=== PATIENT | female | born 1980 | race Hispanic/Latino ===

== ENCOUNTER → 2016-03-22 | Outpatient (CLI) | payer OTHER ==
[~2016-03-22] MED LIST: AC500T; AMOX500C2 PO; DOCU-143 PO; FERR-74 PO; HYDR1TAB PO; IBUP-1773 PO; OXYC-197 PO
--- NOTE | 2016-03-22 16:23 | Diagnostic Imaging Report ---
OB ultrasound. INDICATION: Followup incomplete survey with poor visualization of the four-chamber view and the spine. FINDINGS: The heart rate is 142 beats per minute. The placenta is posterior. There is no placenta previa. The spine and four-chamber view are both seen on today's exam with no abnormality identified. The growth parameters are all around 29 weeks and 0 day, within normal limits for gestational age of 28 weeks and 4 days based on first trimester ultrasound dating. IMPRESSION: The spine and four-chamber view appears unremarkable. Dictated by: Dictated on workstation # [id number]
== END ==
LOC: RAD 11:23
PROVIDERS: ATTEND Family Medicine
DX: Z34.92 Encounter for supervision of normal pregnancy, unspecified, second trimester (principal)
CPT/HCPCS: 76816

== ENCOUNTER 2016-05-31 12:10 | Inpatient (IN) | payer SELFPAY ==
[~2016-05-31] VITALS: Ht 160 cm; Wt 113.0 kg
[2016-05-31] VITALS (26 sets, daily range): BP systolic 115–176; BP diastolic 60–96
[~2016-05-31 12:10] MED LIST changes: -DOCU-143 PO; -FERR-74 PO; -IBUP-1773 PO; -OXYC-197 PO
[2016-05-31] MEDS ORDERED: D5 LR IV SOLUTION 1,000 ML IV SCH (12:43)
[2016-05-31] MEDS ORDERED: D5 LR IV SOLUTION 1,000 ML IV ONE (12:44)
[2016-05-31] MEDS ORDERED: MINERAL OIL CONCENTRATE 99.9% 15 ML UDC TOP PRN (12:45)
[2016-05-31] MEDS ORDERED: OXYTOCIN/NORMAL SALINE 500 ML IV SCH (12:56)
--- NOTE | 2016-05-31 12:56 | History & Physical-OB ---
OB - Chief Complaint & HPI Date Date of Admission: May 31, 2016 Chief Complaint/History OB-Reason for Admission/Chief: Onset of Labor Hx : 4 Hx Para: 3 Expected Date of Delivery: June 11, 2016 Gestational Age in Weeks: 38 Gestational Age in Days: 3 Admission Nurse Assessment Rev: Yes History of Labs GBS negative Allergies and Home Medications Allergies Coded Allergies: No Known Drug Allergies (Unverified , 03/26/10) Home Medications Acetaminophen 500 Mg Tablet, (Reported) Amoxicillin 500 Mg Capsule, 1 EACH PO TID for 7 Days, Ref 0 Prescribed by: YINA GUERRERO on 03/26/10312 Hydrocodone Bit/Acetaminophen 1 Each Tablet, 1-2 EACH PO Q4HR PRN, #14 Ref 0 Prescribed by: YINA GUERRERO on 03/26/10312 OB - History Hx of Present Care: Yes Ultrasounds: Normal mid trimester US Obstetrical Complications: None Medical Complications: None Obstetrical History Hx Termination: No Hx Multiple Gestation: No Hx Stillbirth: No Hx Complication: No Hx Induced Hypertens: No Hx Maternal Gestational Diabet: No Delivery History Hx Dystocia: No Hx Large For Gestational Age I: No Hx Small for Gestational Age I: No Hx Section: No Hx Vaginal Delivery Post C-Sec: No Hx Blood Disorders: No Patient Past Medical History No chronic medical problems. Social History/Family History Recent Infectious Disease Expo: No Immunizations Tetanus Booster (TDap): Unknown OB - Admission Exam Physical Exam Heart: Rhythm Normal Lungs: Clear Abdomen: Gravid Cervical Dilatation: 4cm Effacement: 50% Station: -3 Membranes: Intact Heart Rate: 140's Accelerations: Accelerations Present Short Term Variability: Present [place] Variability: Average (6-25) Contractions on Admission: < 5 Minutes Apart Date/Time Contractions Began;: 05/31/2016 @ 0600 OB - Assessment/Plan/Diagnosis Assessment Assessment: active labor (at 38w3d) Plan Induction Method: AROM Other Plan Stadol for pain relief. Oxytocin if needed. ABNER CLARK MD May 31, 2016 12:56
[2016-05-31] MEDS ORDERED: BUTORPHANOL INJ 2 MG/ML (STADOL) VIAL IV PRN (13:00)
[2016-05-31 13:06] LABS: BASOPHILS # (AUTO) 0.1 10^3/uL (0.0-0.1); BASOPHILS % (AUTO) 1 % (0-10); EOSINOPHILS # (AUTO) 0.5 10^3/uL (0.0-0.3); EOSINOPHILS % (AUTO) 5 % (0-10); LYMPHOCYTES # (AUTO) 2.7 X 10^3 (1.0-4.0); LYMPHOCYTES % (AUTO) 27 % (12-44); MEAN CORPUSCULAR HEMOGLOBIN 29 PG (25-34); MEAN CORPUSCULAR HGB CONC 33 G/DL (32-36); MEAN CORPUSCULAR VOLUME 87 FL (80-99); MEAN PLATELET VOLUME 8.8 FL (7.4-10.4); MONOCYTES # (AUTO) 0.8 X 10^3 (0.0-1.0); MONOCYTES % (AUTO) 8 % (0-12); NEUTROPHILS # (AUTO) 5.9 X 10^3 (1.8-7.8); NEUTROPHILS % (AUTO) 60 % (42-75); PLATELET COUNT 351 10^3/uL (130-400); RED BLOOD COUNT 4.09 10^6/uL (4.35-5.85); RED CELL DISTRIBUTION WIDTH 13.8 % (10.0-14.5); WHITE BLOOD COUNT 9.9 10^3/uL (4.3-11.0)
[2016-05-31] MEDS ORDERED: CATHETER FLUSH 10 ML SYR IV SCH (14:00)
[2016-05-31] MEDS ORDERED: LACTATED RINGERS 1,000 ML IV ONE ×2 (14:14→19:13)
[2016-05-31] MEDS: LACTATED RINGERS 1,000 ML IV SCH ×2 (14:19→18:04)
[2016-05-31 14:26] LABS: BILIRUBIN,URINE NEGATIVE (NEGATIVE); KETONES,URINE NEGATIVE (NEGATIVE); LEUKOCYTE ESTERASE ,URINE 1+ (NEGATIVE); NITRITE,URINE NEGATIVE (NEGATIVE); PH,URINE 7 (5-9); PROTEIN,URINE 1+ (NEGATIVE); UROBILINOGEN,URINE NORMAL (NORMAL)
[2016-05-31] MEDS ORDERED: SUFENTA 0.6MCG/ML BUPIVA 0.125 0 ML ONE (14:43)
[2016-05-31] MEDS ORDERED: fentaNYL INJECTION 100 MCG/2 ML AMP ONE (14:53)
[2016-05-31] MEDS ORDERED: diphenhydrAMINE 50 MG/ML INJ (BENADRYL) IV PRN ×2 (15:45→20:00)
[2016-05-31] MEDS ORDERED: METOCLOPRAMIDE INJ 10 MG/2 ML (REGLAN) IV PRN ×2 (15:45→20:00)
[2016-05-31] MEDS ORDERED: ONDANSETRON 4 MG/2 ML (SDV) Z0FRAN IV PRN ×2 (15:45→20:00)
[2016-05-31] MEDS ORDERED: fentaNYL INJECTION 100 MCG/2 ML AMP IJ ONE (15:45)
[2016-05-31] MEDS ORDERED: NALOXONE 0.4 MG/ML 1 ML (NARCAN) VIAL IV PRN ×4 (15:45→20:00)
[2016-05-31] MEDS ORDERED: LACTATED RINGERS 1,000 ML IV PRN (17:55)
[2016-05-31] MEDS ORDERED: FAMOTIDINE 20MG/2ML IV (PEPCID) IV ONE ×2 (18:00→20:00)
[2016-05-31] MEDS ORDERED: METOCLOPRAMIDE INJ 10 MG/2 ML (REGLAN) IV ONE ×2 (18:00→20:00)
[2016-05-31] MEDS ORDERED: TERBUTALINE INJ 1 MG/ML (BRETHINE) AMP SC ONE (18:00)
[2016-05-31] MEDS ORDERED: CITRIC ACID/SOB CIT (BICITRA) 30 ML UDC PO ONE ×2 (18:00→20:00)
--- NOTE | 2016-05-31 18:00 | Progress Note (SOAP) ---
Subjective Subjective/Events-last exam Patient in labor and pushing for the last 1hr and 35 min. The patient is with less pain relief from the spinal placed at 1500. Objective Exam Vital Signs Date Time Temp Pulse Resp B/P (MAP) Pulse Ox O2 Delivery O2 Flow Rate FiO2 05/31/16 14:40 86 20 134/71 Room Air 05/31/16 14:25 82 20 139/72 Room Air 05/31/16 14:10 98 20 145/77 Room Air 05/31/16 13:55 82 20 150/73 Room Air 05/31/16 13:25 100 20 131/78 Room Air 05/31/16 12:55 99.3 72 18 132/73 Room Air 05/31/16 12:30 83 18 140/78 Room Air Capillary Refill : Other comments Cervix initially complete except for small anterior lip that reduced. Now the anterior lip is swollen and not reducible. Infant heather skull advancement no longer occuring with maternal push. monitor remains reactive. Results Lab Laboratory Tests 05/31/16 12:43: White Blood Count 9.9, Red Blood Count 4.09L, Hemoglobin 11.8, Hematocrit 35, Mean Corpuscular Volume 87, Mean Corpuscular Hemoglobin 29, Mean Corpuscular Hemoglobin Concent 33, Red Cell Distribution Width 13.8, Platelet Count 351, Mean Platelet Volume 8.8, Neutrophils (%) (Auto) 60, Lymphocytes (%) (Auto) 27, Monocytes (%) (Auto) 8, Eosinophils (%) (Auto) 5, Basophils (%) (Auto) 1, Neutrophils # (Auto) 5.9, Lymphocytes # (Auto) 2.7, Monocytes # (Auto) 0.8, Eosinophils # (Auto) 0.5H, Basophils # (Auto) 0.1 05/31/16 14:00: Urine Color YELLOW, Urine Clarity CLEAR, Urine pH 7, Urine Specific [place] 1.020, Urine Protein 1+H, Urine Glucose (UA) NEGATIVE, Urine Ketones NEGATIVE, Urine Nitrite NEGATIVE, Urine Bilirubin NEGATIVE, Urine Urobilinogen NORMAL, Urine Leukocyte Esterase 1+H, Urine RBC (Auto) 3+H, Urine RBC NONE, Urine WBC 5- 10H, Urine Squamous Epithelial Cells 5-10, Urine Crystals NONE, Urine Bacteria FEWH, Urine Casts NONE, Urine Mucus NEGATIVE, Urine Culture Indicated YES Assessment/Plan Assessment/Plan Assess & Plan/Chief Complaint 1. IUP at 38w3d gestation in labor and currently pushing. -After 1hr and 35min of pushing there is no advancement of the heather skull beyond-2 station. The head position appears to be OP based upon examination. -Patient and family agree with proceeding with primary low transverse due to CPD. Dr Rosales consulted and surgery crew notified of plan to proceed with primary . Clinical Quality Measures DVT/VTE Risk/Contraindication: Risk Factor Score Per Nursin RFS Level Per Nursing on Admit: 1=Low/No VTE PPX ABNER CLARK MD May 31, 2016 18:00
--- NOTE | 2016-05-31 18:23 | History & Physical-OB ---
OB - Chief Complaint & HPI Date Date of Admission: Date of Admission: May 31, 2016 at 13:01 Chief Complaint/History OB-Reason for Admission/Chief: Onset of Labor Hx : 4 Hx Para: 3 Expected Date of Delivery: June 11, 2016 Gestational Age in Weeks: 38 Gestational Age in Days: 3 Other reason for admission: Rakel is a 35 y/o @ 38w3d here with active labor who I was consulted on for arrest of descent Pt has been complete and pushing for over 90 minutes now without any arrest of descent Dr. Álvarez also has suspicion for CPD Pt is in agreement with proceeding with delivery Admission Nurse Assessment Rev: Yes History of Labs As per Dr. Álvarez's H&P Allergies and Home Medications Allergies Coded Allergies: No Known Drug Allergies (Unverified , 03/26/10) Home Medications Acetaminophen 500 Mg Tablet, (Reported) Amoxicillin 500 Mg Capsule, 1 EACH PO TID for 7 Days, Ref 0 Prescribed by: YINA GUERRERO on 03/26/10312 Hydrocodone Bit/Acetaminophen 1 Each Tablet, 1-2 EACH PO Q4HR PRN, #14 Ref 0 Prescribed by: YINA GUERRERO on 03/26/10312 OB - History Hx of Present Care: Yes Ultrasounds: Normal mid trimester US Obstetrical Complications: None Medical Complications: None Obstetrical History Hx : 4 Hx Para: 3 Hx Termination: No Hx Multiple Gestation: No Hx Stillbirth: No Hx Complication: No Hx Induced Hypertens: No Hx Maternal Gestational Diabet: No Delivery History Hx Dystocia: No Hx Large For Gestational Age I: No Hx Small for Gestational Age I: No Hx Section: No Hx Vaginal Delivery Post C-Sec: No Hx Blood Disorders: No Patient Past Medical History No chronic medical problems. Social History/Family History Recent Infectious Disease Expo: No Alcohol Use: Denies Use Recreational Drug Use: No Immunizations Tetanus Booster (TDap): Unknown OB - Admission Exam Physical Exam Vitals: Vital Signs 05/31/16 05/31/16 12:55 14:40 Temp 99.3 Pulse 86 Resp 20 B/P (MAP) 134/71 O2 Delivery Room Air Heart: Rhythm Normal Abdomen: Gravid Cervical Dilatation: 10cm Effacement: 100% Station: -2 Membranes: Ruptured Amniotic Fluid: Clear Heart Rate: 150's Accelerations: Accelerations Present Decelerations: Variable Decelerations (several variables with contractions, federico > 100) Short Term Variability: Present Store Sales [employer] Variability: Average (6-25) Contractions on Admission: < 5 Minutes Apart Date/Time Contractions Began;: 05/31/2016 @ 0600 Labs Laboratory Tests Test 05/31/16 12:43 05/31/16 14:00 Range/Units White Blood Count 9.9 4.3-11.0 10^3/uL Red Blood Count 4.09 L 4.35-5.85 10^6/uL Hemoglobin 11.8 11.5-16.0 G/DL Hematocrit 35 35-52 % Mean Corpuscular Volume 87 80-99 FL Mean Corpuscular Hemoglobin 29 25-34 PG Mean Corpuscular Hemoglobin Concent 33 32-36 G/DL Red Cell Distribution Width 13.8 10.0-14.5 % Platelet Count 351 130-400 10^3/uL Mean Platelet Volume 8.8 7.4-10.4 FL Neutrophils (%) (Auto) 60 42-75 % Lymphocytes (%) (Auto) 27 12-44 % Monocytes (%) (Auto) 8 0-12 % Eosinophils (%) (Auto) 5 0-10 % Basophils (%) (Auto) 1 0-10 % Neutrophils # (Auto) 5.9 1.8-7.8 X 10^3 Lymphocytes # (Auto) 2.7 1.0-4.0 X 10^3 Monocytes # (Auto) 0.8 0.0-1.0 X 10^3 Eosinophils # (Auto) 0.5 H 0.0-0.3 10^3/uL Basophils # (Auto) 0.1 0.0-0.1 10^3/uL Urine Color YELLOW Urine Clarity CLEAR Urine pH 7 5-9 Urine Specific [place] 1.020 1.016-1.022 Urine Protein 1+ H NEGATIVE Urine Glucose (UA) NEGATIVE NEGATIVE Urine Ketones NEGATIVE NEGATIVE Urine Nitrite NEGATIVE NEGATIVE Urine Bilirubin NEGATIVE NEGATIVE Urine Urobilinogen NORMAL NORMAL MG/DL Urine Leukocyte Esterase 1+ H NEGATIVE Urine RBC (Auto) 3+ H NEGATIVE Urine RBC NONE /HPF Urine WBC 5-10 H /HPF Urine Squamous Epithelial Cells 5-10 /HPF Urine Crystals NONE /LPF Urine Bacteria FEW H /HPF Urine Casts NONE /LPF Urine Mucus NEGATIVE /LPF Urine Culture Indicated YES OB - Assessment/Plan/Diagnosis Assessment Assessment: active labor (at 38w3d) Plan Other Plan 35 y/o @ 38w3d with active labor now with arrest of descent, GBS neg Patient of Dr. Álvarez Class III obesity (BMI 44) I discussed with the patient that I do believe CPD along with possible OP presentation is the cause for arrest of descent. I do not think that continuing with pushing will result in a vaginal delivery and I do worry about a shoulder dystocia. Her pelvis is proven to 8lb8oz per Dr. Álvarez but I am suspicious this fetus may be much larger based on my Jostin's manuevers. Discussed risks, benefits and alternatives were discussed, including specifically bleeding, infection, and damage to organs/structures of mother/ infant during the birthing process. Ancef 2g before skin incision Spinal anesthesia SAMMY MONTIEL MD May 31, 2016 18:23
[2016-05-31] MEDS ORDERED: OXYTOCIN/NORMAL SALINE 1,000 ML IV ONE (18:25)
[2016-05-31] MEDS ORDERED: ceFAZolin 2 GM/50 ML NS 50 ML IV ONE (18:30)
[2016-05-31] MEDS ORDERED: KETAMINE HCL 100 MG/ML 5 ML VIAL ONE (18:30)
--- NOTE | 2016-05-31 18:30 | Cesarean Section Operative ---
Procedure Procedure Note Date of Procedure: 05/31/16 Pre-operative Diagnosis: Rakel Cueva is a 35 y/o @ 38w3d with active labor, arrest of descent, cephalopelvic disproportion, class III obesity , GBS neg Post-operative Diagnosis: same Procedure: Primary low transverse section Physician: Meena Rosales MD Field Professional: Hi Álvarez MD who was medically necessary for retraction of vital structures Estimated blood loss: 900 mL Disposition: Recovery room, stable Findings: Viable female , Apgars 8/9, weight 5ak13iu, intact placenta, 3vc, normal appearing uterus, tubes, and ovaries. Indications: Rakel Cueva is a 35 y/o @ 38w3d who presented in active labor, managed by Dr. Álvarez. She progressed to completion and began to push but made no progress past -2 station after 90 minutes. Cephalopelvic disproportion was suspected. I was consulted for abdominal delivery and agreed with the plan. Procedure Details: The patient was seen in pre-op and the procedure was discussed with the patient in full, including the risks, benefits, and alternatives. All questions were answered. She was offered the use of the motion picture set worker but declined as her daughter interpreted for her. The patient was taken to the operating room and a time out was performed, verifying patient and procedure. After spinal anesthesia was placed by our anesthesia colleagues, the patient was placed in the dorsal supine with leftward tilt for uterine displacement. Her abdomen was then prepped and draped in the typical sterile fashion. A Pfannenstiel skin incision was made using a scalpel and carried down through the underlying fascia. The fascia was incised in the midline and tented up using Fabian clamps. On both the inferior and superior fascia side the rectus muscle was dissected off bluntly and sharply using Rodríguez scissors. The peritoneum was identified and entered bluntly in the midline. This was then stretched laterally using manual strength. After entering the abdominal cavity and confirming lack of intraperitoneal adhesions, an extra-large Emery retractor was placed and the lower uterine segment was visualized. A bladder flap was created with the use of Metzenbaum scissors. A scalpel was utilized to make a low transverse uterine incision. The infant's head was grasped and brought to the level of the incision. Fundal pressure was applied and infant was delivered without difficulty. Mouth and nares were suctioned with bulb suction. After the umbilical cord was clamped and cut, the infant was handed off to the pediatric staff. A sample of cord blood was then obtained. The placenta was delivered intact via uterine massage. The uterus was exteriorized and cleared of all clots and debris. The uterine incision was closed using 0 Vicryl in a running locked fashion. A second imbricated layer was placed using 0 Vicryl in a running fashion as well. The bilateral tubes and ovaries appeared normal. The abdominal gutters were cleared of all clots and debris. A final check of the uterine incision showed it to be hemostatic. The fascia was closed with 0 Vicryl in a running fashion. The subcutaneous space was hemostatic, and irrigated. The subcutaneous space was closed with 3-0 Vicryl in several single interrupted stitches. The skin was then closed using 4- 0 Monocryl in a running subcuticular fashion. The skin edges were reapproximated together and were hemostatic. A pressure dressing was applied. All sponge, lap and needle counts were correct at the end of the procedure per nursing. Vitals - Labs Vital Signs - I&O Vital Signs Date Time Temp Pulse Resp B/P (MAP) Pulse Ox O2 Delivery O2 Flow Rate FiO2 05/31/16 14:40 86 20 134/71 Room Air 05/31/16 14:25 82 20 139/72 Room Air 05/31/16 14:10 98 20 145/77 Room Air 05/31/16 13:55 82 20 150/73 Room Air 05/31/16 13:25 100 20 131/78 Room Air 05/31/16 12:55 99.3 72 18 132/73 Room Air 05/31/16 12:30 83 18 140/78 Room Air Labs Laboratory Tests 05/31/16 12:43: White Blood Count 9.9, Red Blood Count 4.09L, Hemoglobin 11.8, Hematocrit 35, Mean Corpuscular Volume 87, Mean Corpuscular Hemoglobin 29, Mean Corpuscular Hemoglobin Concent 33, Red Cell Distribution Width 13.8, Platelet Count 351, Mean Platelet Volume 8.8, Neutrophils (%) (Auto) 60, Lymphocytes (%) (Auto) 27, Monocytes (%) (Auto) 8, Eosinophils (%) (Auto) 5, Basophils (%) (Auto) 1, Neutrophils # (Auto) 5.9, Lymphocytes # (Auto) 2.7, Monocytes # (Auto) 0.8, Eosinophils # (Auto) 0.5H, Basophils # (Auto) 0.1 05/31/16 14:00: Urine Color YELLOW, Urine Clarity CLEAR, Urine pH 7, Urine Specific [place] 1.020, Urine Protein 1+H, Urine Glucose (UA) NEGATIVE, Urine Ketones NEGATIVE, Urine Nitrite NEGATIVE, Urine Bilirubin NEGATIVE, Urine Urobilinogen NORMAL, Urine Leukocyte Esterase 1+H, Urine RBC (Auto) 3+H, Urine RBC NONE, Urine WBC 5- 10H, Urine Squamous Epithelial Cells 5-10, Urine Crystals NONE, Urine Bacteria FEWH, Urine Casts NONE, Urine Mucus NEGATIVE, Urine Culture Indicated YES MEENA ROSALES MD May 31, 2016 18:30
[2016-05-31] MEDS ORDERED: OXYC-197 PO (18:32)
[2016-05-31] MEDS ORDERED: DOCU-143 PO (18:32)
[2016-05-31] MEDS ORDERED: IBUP-1773 PO (18:32)
--- NOTE | 2016-05-31 18:34 | Discharge Inst-Women's Service ---
Discharge Inst-Women's Serv Depart Medication/Instructions New, Converted or Re-Newed RX: RX on Chart Final Diagnosis Arrest of descent, suspected cephalopelvic disproportion, primary delivery Consults/Follow Up Additional Follow Up: Yes Orders/Referrals 10-[address] Rosales [address] Álvarez Activity Driving Instructions: No Driving for 1 Week (or while taking narcotic pain medications) NO SMOKING: NO SMOKING Nothing Inside Vagina: No Douching, No [place], No Tampons Other Activity No strenuous activity No heavy lifting > 10 lb Diet Discharge Diet: No Restrictions Symptoms to Report to DrAj: Bleeding Excessive, Pain Increased, Fever Over 101 Degrees F, Pain/Pressure in Chest, Vaginal Bleeding Increase, Dizziness/Fainting , Nausea/Vomiting, Shortness of Breath For Any Problems or Questions: Contact Your Physician, Go to Emergency Room Skin/Wound Care Infection Signs and Symptoms: Increased Redness, Foul Odor of Wound, Increased Drainage Operative Area Clean and Dry: Keep Incision Clean/Dry Stitches/[place]/Dermabond: Dermabond, Care of Stitches Bathing Instructions: SAMMY Hadley MD May 31, 2016 18:34
[2016-05-31] MEDS ORDERED: FERR-74 PO (18:35)
[2016-05-31] MEDS ORDERED: ONDANSETRON 4 MG/2 ML (SDV) Z0FRAN ONE (19:13)
[2016-05-31] MEDS: KETOROLAC 30 MG/ML VIAL IVP SCH (19:30)
[2016-05-31] MEDS ORDERED: KETOROLAC 30 MG/ML VIAL ONE (19:48)
[2016-05-31] MEDS ORDERED: LACTATED RINGERS 1,000 ML IV SCH (19:56)
[2016-05-31] MEDS: OXYTOCIN/NORMAL SALINE 500 ML IV SCH (21:00)
[2016-05-31] MEDS ORDERED: TETANUS,DIPTH,PERTUSS P/F (BOOSTRIX) 0.5 ML VIAL IM SCH (21:45)
[2016-05-31] MEDS ORDERED: ONDANSETRON 4 MG/2 ML (SDV) Z0FRAN IVP PRN (21:45)
[2016-05-31] MEDS ORDERED: morphine INJ 4 MG/ML 1 ML (VIAL/SYRINGE) IVP PRN (21:45)
[2016-05-31] MEDS ORDERED: MEASLES,MUMPS,RUBELLA 1 EA INJ SC SCH (21:45)
[2016-05-31] MEDS: oxyCODONE/APAP 5/325MG (PERCOCET 5) TABLET PO PRN (21:55)
[2016-05-31] MEDS: CATHETER FLUSH 10 ML SYR IV SCH (22:18)
[2016-06-01] VITALS: BP 121/68
[2016-06-01] MEDS: KETOROLAC 30 MG/ML VIAL IVP SCH ×3 (00:45→13:35)
[2016-06-01] MEDS: OXYTOCIN/NORMAL SALINE 500 ML IV SCH (00:45)
[2016-06-01 03:16] VITALS: BP 115/65
[2016-06-01] MEDS: oxyCODONE/APAP 5/325MG (PERCOCET 5) TABLET PO PRN ×2 (03:16→20:57)
[2016-06-01 05:43] LABS: BASOPHILS % (AUTO) 0 % (0-10); EOSINOPHILS # (AUTO) 0.2 10^3/uL (0.0-0.3); EOSINOPHILS % (AUTO) 2 % (0-10); LYMPHOCYTES # (AUTO) 1.6 X 10^3 (1.0-4.0); LYMPHOCYTES % (AUTO) 15 % (12-44); MEAN CORPUSCULAR HEMOGLOBIN 29 PG (25-34); MEAN CORPUSCULAR HGB CONC 33 G/DL (32-36); MEAN CORPUSCULAR VOLUME 87 FL (80-99); MEAN PLATELET VOLUME 8.6 FL (7.4-10.4); MONOCYTES # (AUTO) 0.7 X 10^3 (0.0-1.0); MONOCYTES % (AUTO) 7 % (0-12); NEUTROPHILS # (AUTO) 7.9 X 10^3 (1.8-7.8); NEUTROPHILS % (AUTO) 76 % (42-75); PLATELET COUNT 264 10^3/uL (130-400); RED BLOOD COUNT 3.22 10^6/uL (4.35-5.85); RED CELL DISTRIBUTION WIDTH 13.8 % (10.0-14.5); WHITE BLOOD COUNT 10.4 10^3/uL (4.3-11.0)
[2016-06-01] MEDS: CATHETER FLUSH 10 ML SYR IV SCH (06:36)
[2016-06-01] MEDS ORDERED: LACTATED RINGERS 1,000 ML IV PRN (06:58)
[2016-06-01 08:30] VITALS: BP 120/75
[2016-06-01] MEDS: DOCUSATE SODIUM 100 MG (COLACE) CAP PO SCH ×2 (08:54→20:52)
[2016-06-01] MEDS: FERROUS SULF 325 MG (IRON) TAB PO SCH (08:54)
[2016-06-01] MEDS: ENOXAPARIN 40 MG/0.4 ML (LOVENOX) SYR SC SCH (08:55)
--- NOTE | 2016-06-01 11:50 | Progress Note-Standard ---
Standard Progress Note Progress Notes/Assess & Plan Progress/Assessment & Plan Patient doing well POD 1 PLTCS. Reports decent pain control with meds. Ambulating and voiding freely. Lochia moderate. Vital Sign - Last 24 Hours 05/31/16 05/31/16 05/31/16 05/31/16 12:30 12:55 13:25 13:55 Temp 99.3 Pulse 83 72 100 82 Resp 18 18 20 20 B/P (MAP) 140/78 132/73 131/78 150/73 O2 Delivery Room Air Room Air Room Air Room Air 05/31/16 05/31/16 05/31/16 05/31/16 14:10 14:25 14:40 14:55 Pulse 98 82 86 86 Resp 20 20 20 20 B/P (MAP) 145/77 139/72 134/71 146/71 O2 Delivery Room Air Room Air Room Air Room Air 05/31/16 05/31/16 05/31/16 05/31/16 15:10 15:15 15:20 15:24 Pulse 96 98 113 87 Resp 20 20 20 B/P (MAP) 173/78 170/80 175/96 128/62 Pulse Ox 95 87 98 97 O2 Delivery Room Air Room Air Room Air 05/31/16 05/31/16 05/31/16 05/31/16 15:25 15:30 15:35 15:40 Pulse 96 69 81 81 Resp 20 20 B/P (MAP) 173/78 139/78 147/78 Pulse Ox 95 100 100 95 O2 Delivery Room Air Room Air 05/31/16 05/31/16 05/31/16 05/31/16 15:45 16:00 16:15 16:30 Pulse 78 95 112 110 Resp 20 20 20 B/P (MAP) 139/73 141/80 165/71 Pulse Ox 100 99 98 O2 Delivery Room Air Room Air Room Air 05/31/16 05/31/16 05/31/16 05/31/16 16:45 17:00 17:15 17:30 Pulse 105 103 114 Resp 20 20 20 20 B/P (MAP) 115/80 176/70 143/78 O2 Delivery Room Air Room Air Room Air Room Air 05/31/16 05/31/16 05/31/16 05/31/16 17:35 17:45 18:15 18:30 Temp 99.6 Pulse 102 117 114 Resp 20 20 20 B/P (MAP) 146/76 162/89 130/60 O2 Delivery Room Air Room Air Room Air 05/31/16 05/31/16 06/01/16 06/01/16 20:45 21:55 00:00 03:16 Temp 99.2 98.7 98.5 98.6 Pulse 76 88 80 85 Resp 20 20 18 20 B/P (MAP) 127/74 125/72 121/68 115/65 Pulse Ox 99 99 98 98 O2 Delivery Room Air Room Air Room Air Room Air Intake and Output 05/31/16 05/31/16 06/01/16 15:00 23:00 07:00 Intake Total 1050 ml 2000 ml Output Total 1040 ml 450 ml Balance 10 ml 1550 ml Laboratory Tests Test 05/31/16 12:43 05/31/16 14:00 06/01/16 05:30 Range/Units White Blood Count 9.9 10.4 4.3-11.0 10^3/uL Red Blood Count 4.09 L 3.22 L 4.35-5.85 10^6/uL Hemoglobin 11.8 9.2 #L 11.5-16.0 G/DL Hematocrit 35 28 L 35-52 % Mean Corpuscular Volume 87 87 80-99 FL Mean Corpuscular Hemoglobin 29 29 25-34 PG Mean Corpuscular Hemoglobin Concent 33 33 32-36 G/DL Red Cell Distribution Width 13.8 13.8 10.0-14.5 % Platelet Count 351 264 130-400 10^3/uL Mean Platelet Volume 8.8 8.6 7.4-10.4 FL Neutrophils (%) (Auto) 60 76 H 42-75 % Lymphocytes (%) (Auto) 27 15 12-44 % Monocytes (%) (Auto) 8 7 0-12 % Eosinophils (%) (Auto) 5 2 0-10 % Basophils (%) (Auto) 1 0 0-10 % Neutrophils # (Auto) 5.9 7.9 H 1.8-7.8 X 10^3 Lymphocytes # (Auto) 2.7 1.6 1.0-4.0 X 10^3 Monocytes # (Auto) 0.8 0.7 0.0-1.0 X 10^3 Eosinophils # (Auto) 0.5 H 0.2 0.0-0.3 10^3/uL Basophils # (Auto) 0.1 0.0 0.0-0.1 10^3/uL Urine Color YELLOW Urine Clarity CLEAR Urine pH 7 5-9 Urine Specific [place] 1.020 1.016-1.022 Urine Protein 1+ H NEGATIVE Urine Glucose (UA) NEGATIVE NEGATIVE Urine Ketones NEGATIVE NEGATIVE Urine Nitrite NEGATIVE NEGATIVE Urine Bilirubin NEGATIVE NEGATIVE Urine Urobilinogen NORMAL NORMAL MG/DL Urine Leukocyte Esterase 1+ H NEGATIVE Urine RBC (Auto) 3+ H NEGATIVE Urine RBC NONE /HPF Urine WBC 5-10 H /HPF Urine Squamous Epithelial Cells 5-10 /HPF Urine Crystals NONE /LPF Urine Bacteria FEW H /HPF Urine Casts NONE /LPF Urine Mucus NEGATIVE /LPF Urine Culture Indicated YES Incision: c/d/i Diagnosis: POD 1 PLTCS BMI 44 P: Continue routine PO care Anticipate dc tomorrow. PAXTON COELLO DO Jun 01, 2016 11:50 am
[2016-06-01 13:00] VITALS: BP 124/78
--- NOTE | 2016-06-01 14:11 | Anesthesia-Regional Post-Op ---
Regional Patient Condition Mental Status: Alert, Oriented x3 Circulation: Same as Pre-Op Headache: Absent Sensation: Full Recovery Motor Block: Absent Post Op Complications Complications None Follow Up Care/Instructions Patient Instructions None needed. Anesthesia/Patient Condition Patient is doing well, no complaints, stable vital signs, no apparent adverse anesthesia problems. No complications reported per nursing. D/C home per [facility] Criteria: No JOÃO CONDE CRNA Jun 01, 2016 14:11
[2016-06-01 18:13] VITALS: BP 123/75
[2016-06-01] MEDS ORDERED: IBUPROFEN 800 MG (MOTRIN) TAB PO ONE (20:48)
[2016-06-01 20:52] VITALS: BP 119/69
[2016-06-01] MEDS: IBUPROFEN 800 MG (MOTRIN) TAB PO SCH (20:52)
[2016-06-02] MEDS: IBUPROFEN 800 MG (MOTRIN) TAB PO SCH ×2 (03:03→08:51)
[2016-06-02 03:04] VITALS: BP 119/73
[2016-06-02] MEDS: oxyCODONE/APAP 5/325MG (PERCOCET 5) TABLET PO PRN (03:04)
[2016-06-02 08:30] VITALS: BP 122/71
[2016-06-02] MEDS: ENOXAPARIN 40 MG/0.4 ML (LOVENOX) SYR SC SCH (08:50)
[2016-06-02] MEDS: FERROUS SULF 325 MG (IRON) TAB PO SCH (08:50)
[2016-06-02] MEDS: DOCUSATE SODIUM 100 MG (COLACE) CAP PO SCH (08:51)
--- NOTE | 2016-06-02 09:59 | Progress Note-Standard ---
Standard Progress Note Progress Notes/Assess & Plan Progress/Assessment & Plan Patient doing well POD 2 PLTCS. Reports decent pain control with meds. Ambulating and voiding freely. Lochia moderate. Vital Sign - Last 24 Hours 06/01/16 06/01/16 06/01/16 06/02/16 13:00 18:13 20:52 03:04 Temp 97.9 99.5 99.8 97.8 Pulse 94 98 103 92 Resp 20 18 20 B/P (MAP) 124/78 123/75 119/69 119/73 Pulse Ox 98 98 O2 Delivery Room Air Room Air Room Air Room Air 06/02/16 08:30 Temp 97.8 Pulse 83 Resp 20 B/P (MAP) 122/71 Pulse Ox 97 O2 Delivery Room Air Intake and Output 06/01/16 06/01/16 06/02/16 15:00 23:00 07:00 Intake Total 1710 ml 1000 ml Output Total 2300 ml 900 ml Balance -590 ml 100 ml Incision: c/d/i Diagnosis: POD 2 PLTCS BMI 44 P: Continue routine PO care Anticipate dc today PAXTON COELLO DO Jun 02, 2016 9:59 am
[2016-06-02 14:00] VITALS: BP 133/80
[2016-06-02 14:15] VITALS: BP 133/80
== END 2016-06-02 14:15 | disposition home or self-care (01) | DRG 765 ==
LOC: LDRP 12:10 → WSo 12:10 → LDRP 13:01 → WSo 13:07 → LDRP 20:35
PROVIDERS: ADMIT Family Medicine; ATTEND Family Medicine
PROC: 10D00Z1 Extraction of Products of Conception, Low, Open Approach (ICD-10-PCS; principal; 2016-05-31 18:34)
DX: O66.8 Other specified obstructed labor (principal); O66.40 Failed trial of labor, unspecified; O99.214 Obesity complicating childbirth; E66.9 Obesity, unspecified; Z68.41 Body mass index [BMI] 40.0-44.9, adult; Z37.0 Single live birth; Z3A.38 38 weeks gestation of pregnancy
CPT/HCPCS: 36415; 81000; 85025; 86850; 86900; 86901; 87081; 87088; 88307; 94664; 99212

== ENCOUNTER 2018-06-16 17:15 | Emergency (ER) | payer SELFPAY ==
[~2018-06-16] VITALS: Ht 162.6 cm; Wt 96.2 kg
[~2018-06-16 17:15] MED LIST changes: +DOCU-143 PO; +FERR325T18 PO; +IBUP-1773 PO; +OXYC1TAB87 PO
[2018-06-16] MEDS ORDERED: fentaNYL INJECTION 100 MCG/2 ML AMP ONE (17:40)
--- NOTE | 2018-06-16 17:40 | NUR ---
ASSISTED ED PROVIDER WITH VAGINAL EXAM
[2018-06-16] MEDS ORDERED: NS IV 1000 ML 1,000 ML ONE (17:43)
[2018-06-16] MEDS ORDERED: NS IV 1000 ML 1,000 ML IV SCH (17:44)
[2018-06-16] MEDS ORDERED: fentaNYL INJECTION 100 MCG/2 ML AMP IVP ONE ×2 (17:45→18:30)
--- NOTE | 2018-06-16 17:55 | ED GU-Female ---
General Stated Complaint: 14 WKS PREG/PAIN/FLUID/BLOOD LEAKING Source: patient, other Exam Limitations: language barrier History of Present Illness Date Seen by Provider: June 16, 2018 Time Seen by Provider: 17:36 Initial Comments Patient presents ER by private conveyance with chief complaint of vaginal bleeding started this morning. His gotten heavier she's having abdominal cramping. She is 14 weeks 3 days by an estimated due date of December 10. She is a known to a female OB provider but she does not know the name. She just saw them Sunday and everything was fine. No dysuria fevers chills cough shortness of breath. No problems with thus far. No history of high blood pressure diabetes or preeclampsia and previous . Allergies and Home Medications Allergies Coded Allergies: No Known Drug Allergies (Unverified , 05/27/17) Home Medications Hydrocodone Bit/Acetaminophen 1 Tab Tab, 1 EACH PO Q4-6HR PRN for PAIN-MODERATE Prescribed by: DIANA ROTHMAN on 06/16/18 1855 Oxycodone HCl/Acetaminophen 1 Each Tablet, 1-2 EACH PO Q4H PRN for PAIN-MODERATE Prescribed by: SAMMY MONTIEL on 05/31/16 1832 Patient Home Medication List Home Medication List Reviewed: Yes Review of Systems Review of Systems Constitutional: No chills, No diaphoresis EENTM: No ear discharge, No hearing loss, No ear pain Respiratory: No cough, No dyspnea on exertion Cardiovascular: No chest pain, No palpitations Gastrointestinal: abdominal pain; No constipation, No diarrhea Genitourinary: denies burning, denies discharge; dysuria : Yes Expected Date of Delivery: Dec 10, 2018 Musculoskeletal: No back pain, No joint pain Past Gzbxsjx-Pvwujj-Zkddgs Hx Patient Social History Alcohol Use: Denies Use Recreational Drug Use: No Smoking Status: Never a Smoker 2nd Hand Smoke Exposure: No Recent Foreign Travel: No Contact w/Someone Who Travel: No Recent Hopitalizations: Yes (for sinusitus) Immunizations Up To Date Tetanus Booster (TDap): Unknown Seasonal Allergies Seasonal Allergies: No Past Medical History Surgeries: Yes Section Respiratory: No Cardiac: No Neurological: No Reproductive Disorders: No Genitourinary: No Gastrointestinal: No Musculoskeletal: No Endocrine: No HEENT: No Cancer: No Psychosocial: No Integumentary: No Blood Disorders: No Family Medical History No Family History of: AIDS Abdominal aortic aneurysm [place]'s disease Alcoholism Alzheimer's disease Aphasia Arthritis Asthma Cancer of mouth Cardiovascular disease Cataracts Colon cancer Completed stroke Congenital disease Congenital heart disease Coronary thrombosis Cystic fibrosis Deafness or hearing loss Dementia Diabetes mellitus Drug abuse Dysphasia Fibrocystic disease of breast Gastroenteritis Glaucoma Headache disorder Hypercholesterolemia Hypertension Infertility Kidney disease Myocardial infarction Neoplasm Not obtainable due to adoption Osteoporosis Parkinson's disease Prostate cancer Psychosocial problem Respiratory disorder Seizure disorder Severe allergy Thyroid disease Tuberculosis Visual disorder No Pertinent Family Hx Physical Exam Vital Signs Vital Signs - First Documented 06/16/18 17:30 Temp 98.1 Pulse 100 Resp 22 B/P (MAP) 128/61 (83) Pulse Ox 100 O2 Delivery Room Air Capillary Refill : Height, Weight, BMI Height: 5'3.00" Weight: 210lbs. 0.6oz. [id number]; 44.1 BMI Method:Stated General Appearance: WD/WN, no apparent distress HEENT: PERRL/EOMI, pharynx normal Neck: full range of motion, normal inspection Cardiovascular: normal peripheral pulses, regular rate, rhythm, no edema Respiratory: no respiratory distress, no accessory muscle use Gastrointestinal: no organomegaly, other (gravid with fundus palpable under the umbilicus just above the pubic bones) Neurologic/Psychiatric: alert, normal mood/affect, oriented x 3 Skin: normal color, warm/dry Progress/Results/Core Measures Suspected Sepsis SIRS Temperature: Pulse: Respiratory Rate: Laboratory Tests 06/16/18 17:32: White Blood Count 18.3H Blood Pressure / Mean: Laboratory Tests 06/16/18 17:32: Creatinine 0.70, Platelet Count 357, Total Bilirubin 0.2 Results/Orders Lab Results Laboratory Tests Test 06/16/18 17:32 06/16/18 18:14 Range/Units White Blood Count 18.3 H 4.3-11.0 10^3/uL Red Blood Count 4.08 L 4.35-5.85 10^6/uL Hemoglobin 12.2 11.5-16.0 G/DL Hematocrit 36 35-52 % Mean Corpuscular Volume 89 80-99 FL Mean Corpuscular Hemoglobin 30 25-34 PG Mean Corpuscular Hemoglobin Concent 34 32-36 G/DL Red Cell Distribution Width 13.4 10.0-14.5 % Platelet Count 357 130-400 10^3/uL Mean Platelet Volume 8.4 7.4-10.4 FL Neutrophils (%) (Auto) 76 H 42-75 % Lymphocytes (%) (Auto) 15 12-44 % Monocytes (%) (Auto) 6 0-12 % Eosinophils (%) (Auto) 3 0-10 % Basophils (%) (Auto) 0 0-10 % Neutrophils # (Auto) 14.0 H 1.8-7.8 X 10^3 Lymphocytes # (Auto) 2.7 1.0-4.0 X 10^3 Monocytes # (Auto) 1.1 H 0.0-1.0 X 10^3 Eosinophils # (Auto) 0.6 H 0.0-0.3 10^3/uL Basophils # (Auto) 0.0 0.0-0.1 10^3/uL Neutrophils % (Manual) 74 % Lymphocytes % (Manual) 9 % Monocytes % (Manual) 5 % Eosinophils % (Manual) 4 % Basophils % (Manual) 0 % Band Neutrophils 3 % Reactive Lymphocytes 5 % Blood Morphology Comment NORMAL Sodium Level 136 135-145 MMOL/L Potassium Level 3.8 3.6-5.0 MMOL/L Chloride Level 107 98-107 MMOL/L Carbon Dioxide Level 18 L 21-32 MMOL/L Anion Gap 11 5-14 MMOL/L Blood Urea Nitrogen 10 7-18 MG/DL Creatinine 0.70 0.60-1.30 MG/DL Estimat Glomerular Filtration Rate > 60 BUN/Creatinine Ratio 14 Glucose Level 106 H 70-105 MG/DL Calcium Level 9.4 8.5-10.1 MG/DL Corrected Calcium 9.7 8.5-10.1 MG/DL Total Bilirubin 0.2 0.1-1.0 MG/DL Aspartate Amino Transf (AST/SGOT) 12 5-34 U/L Alanine Aminotransferase (ALT/SGPT) 18 0-55 U/L Alkaline Phosphatase 58 40-136 U/L C-Reactive Protein High Sensitivity 3.74 H 0.00-0.50 MG/DL Total Protein 6.8 6.4-8.2 GM/DL Albumin 3.6 3.2-4.5 GM/DL Human Chorionic Gonadotropin, Quant 22918 H <5 MIU/ML Urine Color YELLOW Urine Clarity CLEAR Urine pH 7 5-9 Urine Specific [place] 1.010 L 1.016-1.022 Urine Protein NEGATIVE NEGATIVE Urine Glucose (UA) NEGATIVE NEGATIVE Urine Ketones NEGATIVE NEGATIVE Urine Nitrite NEGATIVE NEGATIVE Urine Bilirubin NEGATIVE NEGATIVE Urine Urobilinogen NORMAL NORMAL MG/DL Urine Leukocyte Esterase NEGATIVE NEGATIVE Urine RBC (Auto) 3+ H NEGATIVE Urine RBC 2-5 H /HPF Urine WBC NONE /HPF Urine Squamous Epithelial Cells RARE /HPF Urine Crystals NONE /LPF Urine Bacteria NEGATIVE /HPF Urine Casts NONE /LPF Urine Mucus NEGATIVE /LPF Urine Culture Indicated NO Urine Opiates Screen NEGATIVE NEGATIVE Urine Oxycodone Screen NEGATIVE NEGATIVE Urine Methadone Screen NEGATIVE NEGATIVE Urine Propoxyphene Screen NEGATIVE NEGATIVE Urine Barbiturates Screen NEGATIVE NEGATIVE Ur Tricyclic Antidepressants Screen NEGATIVE NEGATIVE Urine Phencyclidine Screen NEGATIVE NEGATIVE Urine Amphetamines Screen NEGATIVE NEGATIVE Urine Methamphetamines Screen NEGATIVE NEGATIVE Urine Benzodiazepines Screen NEGATIVE NEGATIVE Urine Cocaine Screen NEGATIVE NEGATIVE Urine Cannabinoids Screen NEGATIVE NEGATIVE My Orders Orders - DIANA ROTHMAN Fentanyl Injection (Sublimaze Injection (06/16/18 17:40) Ns Iv 1000 Ml (Sodium Chloride 0.9%) (06/16/18 17:43) Fentanyl Injection (Sublimaze Injection (06/16/18 17:45) Ua Culture If Indicated (06/16/18 17:44) Drug Screen Stat (Urine) (06/16/18 17:44) Cbc With Automated Diff (06/16/18 17:44) Comprehensive Metabolic Panel (06/16/18 17:44) Hs C Reactive Protein (06/16/18 17:44) Ed Iv/Invasive Line Start (06/16/18 17:44) Ns Iv 1000 Ml (Sodium Chloride 0.9%) (06/16/18 17:44) Manual Differential (06/16/18 17:32) Fentanyl Injection (Sublimaze Injection (06/16/18 18:30) Type And Screen (06/16/18 18:39) Hcg,Quantitative (06/16/18 18:39) Rx-Hydrocodone/Apap 5-325 Mg (Rx-Vicodin (06/16/18 19:00) Misoprostol Tablet (Cytotec Tablet) (06/16/18 19:00) Hydrocodone/Apap 5/325 Tablet (Lortab 5 (06/16/18 19:30) Hydrocodone/Apap 5/325 Tablet (Lortab 5 (06/16/18 19:25) Medications Given in ED Current Medications Medications Dose Ordered Sig/Danie Route Start Time Stop Time Status Last Admin Dose Admin Acetaminophen/ Hydrocodone Bitart 1 ea Q4H PRN PO 06/16/18 19:00 06/16/18 20:45 DC 06/16/18 20:13 1 EA Acetaminophen/ Hydrocodone Bitart 1 tab ONCE ONCE PO 06/16/18 19:30 06/16/18 19:31 DC 06/16/18 19:35 1 TAB Misoprostol 400 mcg ONCE ONCE PO 06/16/18 19:00 06/16/18 19:01 DC 06/16/18 20:12 400 MCG Vital Signs/I&O 06/16/18 20:40 Temp 98.6 Pulse 90 Resp 18 B/P (MAP) 125/70 (88) Pulse Ox 100 O2 Delivery Room Air 06/17/18 00:00 Intake Total 1000 ml Balance 1000 ml Capillary Refill : Progress Note #1: Time: 18:46 Progress Note We gave the patient some fentanyl for her discomfort. She is stable; her vital signs are fine. Labs were obtained she was given a liter of saline. The pain got much better with the fentanyl. The pain is described as cramps like she is melva. It is most likely she is having a miscarriage. Bedside ultrasound by this provider was unable to find heart movement. Doppler was unable to hear heart tones. We have asked the OB nurse to come with heart tones. We consulted with Dr. Ma and she agrees with our observations and would recommend white count of 18,000 is expected with a miscarriage. She recommends expectant management and will set the patient up to go home and follow-up Sunday at the clinic. Dr. Ma will see that the clinic patient call to set this appointment up. Urine and labs otherwise unremarkable. Progress Note #2: Time: 19:12 Progress Note Patient felt like she passed a large clot so we checked her again and she had a small approximately 14 week fetus was still attached the umbilicus at the vaginal os. A few more good pushes and she was able to deliver the placenta and cotyledons that appear to be intact. Membranes appeared to be intact. She had a few more blood clots and then bleeding stopped and her fundus was palpable, firm. Progress Note #3: Time: 19:58 Progress Note Patient's quantitative is 31,000. While we are waiting for the type and screen to see whether or not the patient needs a RhoGAM. Labs pending and SEAN Owens has assumed care of the patient and knows to look for result and treat appropriately and then allow the patient to go home. Discharges are in place. Transfer of Care Transfer of Care Time: 19:58 Care transferred to: González Owens APRN Departure Impression Primary Impression: Incomplete miscarriage Disposition: 01 HOME, SELF-CARE Condition: Stable Departure-Patient Inst. Decision time for Depature: 18:55 Referrals: [facility] (PCP/Family) Primary Care Physician Patient Instructions: Miscarriage (DC) Add. Discharge Instructions: You have already passed all of the products of conception however there may still be rare chance of a membrane remaining to pass. Continue to drink plenty of fluids and use maternity pads. If you start to pass clots larger than a chicken egg or if you're soaking the maternity pad more than one per hour dripping wet then you can take Cytotec and if that does not stop it you should come in to the ER. Use the hydrocodone one to 2 tablets every 6 hours as needed to control your pain. Tomorrow expect a phone call from [facility] via set up for an appointment on Sunday. They will make sure there is nothing retained in the uterus at that point by performing ultrasound if necessary. Scripts Hydrocodone Bit/Acetaminophen (Hydrocodone/Acetaminophen 5/325mg Tablet) 1 Tab Tab 1 EACH PO Q4-6HR PRN for PAIN-MODERATE MDD 10, #20 TAB 0 Refills Prov: DIANA ROTHMAN 06/16/18 Work/School Note: Work Release Form Date Seen in the Emergency Department: June 16, 2018 Return to Work: June 24, 2018 Restrictions: No Restrictions DIANA ROTHMAN June 16, 2018 17:55
[2018-06-16 17:59] LABS: BASOPHILS % (AUTO) 0 % (0-10); EOSINOPHILS # (AUTO) 0.6 10^3/uL (0.0-0.3); EOSINOPHILS % (AUTO) 3 % (0-10); HEMATOCRIT 36 % (35-52); HEMOGLOBIN 12.2 G/DL (11.5-16.0); LYMPHOCYTES # (AUTO) 2.7 X 10^3 (1.0-4.0); LYMPHOCYTES % (AUTO) 15 % (12-44); MEAN CORPUSCULAR HEMOGLOBIN 30 PG (25-34); MEAN CORPUSCULAR HGB CONC 34 G/DL (32-36); MEAN CORPUSCULAR VOLUME 89 FL (80-99); MEAN PLATELET VOLUME 8.4 FL (7.4-10.4); MONOCYTES # (AUTO) 1.1 X 10^3 (0.0-1.0); MONOCYTES % (AUTO) 6 % (0-12); NEUTROPHILS % (AUTO) 76 % (42-75); PLATELET COUNT 357 10^3/uL (130-400); RED CELL DISTRIBUTION WIDTH 13.4 % (10.0-14.5); WHITE BLOOD COUNT 18.3 10^3/uL (4.3-11.0)
[2018-06-16 18:13] LABS: ALANINE AMINOTRANSFERASE 18 U/L (0-55); ALBUMIN 3.6 GM/DL (3.2-4.5); ALKALINE PHOSPHATASE 58 U/L (40-136); BAND NEUTROPHILS 3 %; BASOPHILS % (MANUAL) 0 %; BILIRUBIN,TOTAL 0.2 MG/DL (0.1-1.0); BUN/CREATININE RATIO 14; CALCIUM 9.4 MG/DL (8.5-10.1); CARBON DIOXIDE 18 MMOL/L (21-32); CHLORIDE 107 MMOL/L (98-107); EOSINOPHILS % (MANUAL) 4 %; GFR ESTIMATED > 60; GLUCOSE 106 MG/DL (70-105); LYMPHOCYTES % (MANUAL) 9 %; MONOCYTES % (MANUAL) 5 %; NEUTROPHILS % (MANUAL) 74 %; POTASSIUM 3.8 MMOL/L (3.6-5.0); REACTIVE LYMPHOCYTES 5 %; SODIUM 136 MMOL/L (135-145); TOTAL PROTEIN 6.8 GM/DL (6.4-8.2)
[2018-06-16 18:14] LABS: RBC MORPH NORMAL
[2018-06-16 18:22] LABS: BILIRUBIN,URINE NEGATIVE (NEGATIVE); CLARITY,URINE CLEAR; COLOR,URINE YELLOW; GLUCOSE, URINE (UA) NEGATIVE (NEGATIVE); KETONES,URINE NEGATIVE (NEGATIVE); LEUKOCYTE ESTERASE ,URINE NEGATIVE (NEGATIVE); NITRITE,URINE NEGATIVE (NEGATIVE); PH,URINE 7 (5-9); PROTEIN,URINE NEGATIVE (NEGATIVE); UROBILINOGEN,URINE NORMAL (NORMAL)
[2018-06-16 18:29] LABS: BACTERIA,URINE NEGATIVE /HPF; SQUAMOUS EPITHELIAL CELL,UR RARE /HPF
[2018-06-16 18:33] LABS: AMPHETAMINE SCREEN, URINE NEGATIVE (NEGATIVE); BARBITURATE SCREEN URINE NEGATIVE (NEGATIVE); BENZODIAZEPINES SCREEN URINE NEGATIVE (NEGATIVE); CANNABINOID SCREEN, URINE NEGATIVE (NEGATIVE); COCAINE SCREEN URINE NEGATIVE (NEGATIVE); METHADONE STAT NEGATIVE (NEGATIVE); METHAMPHETAMINE SCREEN URINE S NEGATIVE (NEGATIVE); OPIATE SCREEN URINE NEGATIVE (NEGATIVE); OXYCODONE STAT NEGATIVE (NEGATIVE); PROPOXYPHENE STAT NEGATIVE (NEGATIVE); TRICYCLIC ANTIDEPRESSANTS SCRE NEGATIVE (NEGATIVE)
[2018-06-16] MEDS ORDERED: ACHD5005 PO (18:55)
[2018-06-16] MEDS ORDERED: RX-HYDROCODONE/APAP 5/325 MG #4 TAB PK PO PRN (19:00)
[2018-06-16] MEDS ORDERED: MISOPROSTOL 200 MCG (CYTOTEC) TABLET PO ONE (19:00)
[2018-06-16] MEDS ORDERED: HYDROcodone/APAP 5 MG/325 MG (LORTAB) TAB ONE (19:25)
[2018-06-16] MEDS ORDERED: HYDROcodone/APAP 5 MG/325 MG (LORTAB) TAB PO ONE (19:30)
[2018-06-16 20:40] VITALS: BP 125/70
== END 2018-06-16 20:44 | disposition home or self-care (01) ==
LOC: EDUNIT# 17:15 → ER 17:17
DX: O03.4 Incomplete spontaneous abortion without complication (principal); Z3A.14 14 weeks gestation of pregnancy; Z98.890 Other specified postprocedural states
CPT/HCPCS: 36415; 80053; 80306; 81000; 84702; 85007; 85027; 86141; 86850; 86900; 86901